=== PATIENT | male | born 1950 | race Two or more races ===

== ENCOUNTER 2024-01-24 12:02 | Emergency (ER) | payer MEDICARE, SELFPAY ==
[2024-01-24 12:03] VITALS: BMI 24.3
[2024-01-24 12:04] VITALS: BP 184/87; PULSE 82; RESP 19; TEMP 37; O2SAT 100
--- NOTE | 2024-01-24 12:15 | XR_ITS ---
Examination: PA chest single view Technique: Upright PA chest single view Exam date and time: January 24, 2024 1306 hrs. Indications: Dizziness episodes beginning 3 days ago Findings: Normal heart size Lungs are clear. The osseous structures are intact Impression: No active disease
--- NOTE | 2024-01-24 12:15 | EKG_ITS ---
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
--- NOTE | 2024-01-24 12:16 | PD.EDRME ---
Rapid Medical Screening Exam RME Arrival date/time: 01/24/24 12:02 Chief Complaint: General Adult/Misc Complain Time Seen by Provider: 01/24/24 12:12 Vital signs: Vital Signs Temperature 98.6 F 01/24/24 12:04 Pulse Rate 82 01/24/24 12:04 Respiratory Rate 19 01/24/24 12:04 Blood Pressure 184/87 H 01/24/24 12:04 Pulse Oximetry (%) 100 01/24/24 12:04 Oxygen Delivery Method Room Air 01/24/24 12:04 RME Narrative: Reports dizziness x 3 days, diarrhea x 2 days. Out of DM medications x 1 month. Patient states he is currently homeless.
[2024-01-24 12:57] LABS: Beta Hydroxybutyrate 0.1 mmol/L (<0.6)
[2024-01-24 12:59] LABS: Basophils % (Auto) 0 % (0-2.5); Eosinophils # (Auto) 0.3 Thou/mm3 (0.0-0.5); Eosinophils % (Auto) 4 % (0-10); Hematocrit 37.8 % (41.0-53.0); Hemoglobin 12.8 g/dL (13.5-16.0); Immature Granulocytes % (Auto) 0 % (0-0); Immature Granulocytes Auto 0.01 Thou/mm3 (0.00-0.00); Lymphocytes # (Auto) 2.1 Thou/mm3 (1.0-4.8); Lymphocytes % (Auto) 28 % (10-50); Mean Corpuscular HGB Conc 33.9 g/dl (31.0-37.0); Mean Corpuscular Volume 92 fL (80-100); Monocytes # (Auto) 0.8 Thou/mm3 (0.0-0.8); Monocytes % (Auto) 11 % (0-12); Neutrophils # (Auto) 4.3 Thou/mm3 (1.8-7.7); Neutrophils % (Auto) 57 % (37-80); Nucleated Red Blood Cell % 0 /100 WBC (0); Platelet Count 211 Thou/mm3 (140-440); RDW Standard Deviation 46.4 fL (35.1-43.9); Red Blood Count 4.13 Miln/mm3 (4.50-5.90); White Blood Count 7.5 Thou/mm3 (3.8-10.6)
[2024-01-24 13:13] LABS: Glucose Estimated Average 174 mg/dL (80-131); Hemoglobin A1C 7.7 % Hgb (4.8-6.0)
[2024-01-24 13:14] LABS: Alanine Aminotransferase 22 U/L (10-49); Albumin, Serum 4.3 gm/dL (3.4-4.8); Albumin/Globulin Ratio 1.3 (1.2-2.2); Alkaline Phosphatase 137 U/L (46-116); Anion Gap 7 (7-16); Aspartate Amino Transferase 20 U/L (0-34); BUN/Creatinine Ratio 13 Ratio (12-20); Bilirubin,Total 0.5 mg/dL (0.3-1.2); Blood Urea Nitrogen 12 mg/dL (9-23); Calcium 8.9 mg/dL (8.3-10.6); Calcium (Corrected) 8.9 mg/dL (8.5-10.1); Carbon Dioxide 25.4 mMol/L (20.0-31.0); Chloride 103 mMol/L (98-107); Creatinine (Component) 0.9 mg/dL (0.6-1.3); Estimated Creatinine Clearance 74.4 mL/min (>60); Globulin 3.2 gm/dL (2.3-3.5); Glucose 261 mg/dL (74-106); Lipase 44 U/L (12-53); Osmolality,Calculated 278 (275-295); Potassium 3.9 mMol/L (3.4-5.1); Sodium 135 mMol/L (136-145); Total Protein 7.5 gm/dL (5.7-8.2); Troponin I < 0.020 ng/mL (0.0-0.045); eGFR > 60 See Note
--- NOTE | 2024-01-24 13:41 | EDNOTE_ITS ---
ED General RME/HPI General Chief complaint: General Adult/Misc Complain Stated complaint: RAN OUT OF DIABETIC MEDS 30 DAYS AGO Time Seen by Provider: 01/24/24 12:12 Arrival date/time: 01/24/24 12:02 RME / HPI RME / HPI narrative: This section includes all my notes and documentations, including HPI, PE, and ED course.? Cody Lauren MD HPI: 73 year old male here requesting refills for his DM and HTN medications. Ran out over a month ago. Reports malaise and fatigue, dizziness, dry mouth, and loose stools. No other complaints. ROS: All negative except as documented in HPI. PE: Physical Exam: General:? Alert and oriented.? No acute distress.?? Eyes:? Conjunctivae and lids clear.? EOMI.? PERRL. ENT:? No nasal congestion.? Pharynx normal.? Tympanic membrane normal bilaterally.??? Neck:? Supple.? No carotid bruit.? No JVD.?? Heart:? RRR.? Lungs:? No respiratory distress.? Good air movement.? No rhonchi, wheezing, rales.?? Abdomen:? Soft and nontender.? Normal bowel sounds.? No distension.? No rebound or guarding.?? Back:? No CVA tenderness.?? Legs:? No clubbing, cyanosis, edema.? Skin:? Warm and dry.?? Neuro:? Alert and oriented X 3.? Cranial Nerves II-XII grossly intact.? No peripheral motor deficits. I reviewed all diagnostic test results. My interpretation of the chest x-ray is no acute findings. Blood tests unremarkable, except glucose 261. At this point, diagnoses include?DM and HTN. Recommended more outpatient care. Based on my best medical judgment, made decision no further evaluation or treatment indicated at this time.? Patient understands and agrees to the discharge instructions customized and printed, see below. Discharge Instructions from Dr. Lauren printed for you: 1. For your diabetes, take metformin as prescribed. 2. And metoprolol every night for high BP. You will live longer with lower BP and slower heart rate. 3. See a private doctor on 01/26/2024 for recheck and further care. Ask to help you stay healthy, with good management of your BP and diabetes, helping him to prevent future heart attacks and strokes, and with regular physical exam and health maintenance. 4. Read attached handouts. Seek immediate medical care with any concerns. Related Data Previous Rx's ?Medication ?Instructions ?Recorded metformin 1,000 mg tablet,extended 1,000 mg PO BID #60 tabs 01/24/24 release 24hr (osmotic) metoprolol succinate 100 mg 100 mg PO QDAY #30 ea 01/24/24 capsule sprinkle, ext. release 24 hr Allergies Allergy/AdvReac Type Severity Reaction Status Date / Time No Known Allergies Allergy Verified 01/24/24 12:04 Course Quality Measures none Orders Category Date Time Status EKG (ED ONLY) *Do not use* NOW Care 01/24/24 12:16 Completed CXR [XR chest 1V] Stat Exams 01/24/24 12:15 Completed EKG (ED Only) Stat Exams 01/24/24 12:15 Draft Beta Hydroxybutyrate Stat Lab 01/24/24 12:34 Completed CBC Stat Lab 01/24/24 12:34 Completed CMP [Comprehensive Metabolic Panel] Stat Lab 01/24/24 12:34 Completed Hemoglobin A1C [Glycohemoglobin w (eAG)] Stat Lab 01/24/24 12:34 Completed Lipase Stat Lab 01/24/24 12:34 Completed Troponin I Stat Lab 01/24/24 12:34 Completed Insulin Regular Med 01/24/24 13:36 Discontinued 10 unit SC X1 ONE Vital Signs Vital signs: Vital Signs Temperature 98.6 F 01/24/24 12:04 Pulse Rate 82 01/24/24 12:04 Respiratory Rate 19 01/24/24 12:04 Blood Pressure 184/87 H 01/24/24 12:04 Pulse Oximetry (%) 100 01/24/24 12:04 Oxygen Delivery Method Room Air 01/24/24 12:04 [facility] Patient data External records reviewed:: None Clinical information provided by:: patient Social determinants that could affect healthcare access:: housing Patient has the following chronic illnesses:: DM and HTN How is presenting disease/condition affected by chronic disease/condition?: e xacerbated by Evaluation data The following diagnostics were reviewed and interpreted by me:: lab results and radiology exam(s) Lab and/or radiology exams considered but not ordered:: none Interpretation Summary: DM and HTN Medications Medications considered but not ordered:: none Medication administrations:: Medication Administration History Discontinued Medications Insulin Human Regular (Insulin Hum Regular 1 Unit/0.01 Ml (Per Unit)) 10 unit SC X1 ONE Stop: 01/24/24 13:37 Last Admin: 01/24/24 13:56 Dose: 10 unit Documented By: Co-signed By: FIORELLA Insulin Consultations Consultation(s) initiated? (list below): No Diagnosis Differential Diagnosis ED Complaint MDM: DM HTN Most likely diagnosis given after review of the tests above:: DM HTN Admission Indicated Admission indicated?: not indicated Explain why admission is indicated or not indicated:: admission criteria not met Admission Request Was there a request for admission?: No Disposition Plan Disposition Plan: Discharge Discharge Attestation Discharge Attestation: The patient and all family members were given an opportunity to ask questions and understood the discharge instructions. Discharge instructions specifically effects, indications for sooner follow up or return to the emergency department, and the expected course of current diagnosis. Patient condition: Stable Medical Decision Making Differential Diagnosis Differential Diagnosis: DM HTN Lab Data 01/24/24 12:34 01/24/24 12:34 Labs: Lab Results 01/24/24 Range/Units 12:34 WBC 7.5 (3.8-10.6) Thou/mm3 RBC 4.13 L (4.50-5.90) Miln/mm3 Hgb 12.8 L (13.5-16.0) g/dL Hct 37.8 L (41.0-53.0) % MCV 92 (80-100) fL MCH 31.0 (25.0-35.0) pg MCHC 33.9 (31.0-37.0) g/dl RDW Std Deviation 46.4 H (35.1-43.9) fL Plt Count 211 (140-440) Thou/mm3 Neut % (Auto) 57 (37-80) % Lymph % (Auto) 28 (10-50) % Mcleod % (Auto) 11 (0-12) % Eos % (Auto) 4 (0-10) % Baso % (Auto) 0 (0-2.5) % Neut # (Auto) 4.3 (1.8-7.7) Thou/mm3 Lymph # (Auto) 2.1 (1.0-4.8) Thou/mm3 Mcleod # (Auto) 0.8 (0.0-0.8) Thou/mm3 Eos # (Auto) 0.3 (0.0-0.5) Thou/mm3 Baso # (Auto) 0.0 (0.0-0.2) Thou/mm3 Immature Gran # (Auto) 0.01 H (0.00-0.00) Thou/mm3 Absolute Nucleated RBC 0.00 (0.00-0.00) Thou/mm3 Immature Gran % 0 (0-0) % Nucleated RBC % 0 (0) /100 WBC Sodium 135 L (136-145) mMol/L Potassium 3.9 (3.4-5.1) mMol/L Chloride 103 (98-107) mMol/L Carbon Dioxide 25.4 (20.0-31.0) mMol/L Anion Gap 7 (7-16) BUN 12 (9-23) mg/dL Creatinine 0.9 (0.6-1.3) mg/dL Estim Creat Clear Calc 74.4 (>60) mL/min eGFR > 60 (60 - ) See Note BUN/Creatinine Ratio 13 (12-20) Ratio Glucose 261 H (74-106) mg/dL Estimated Ave Glu mg/dL 174 H (80-131) mg/dL Hemoglobin A1c 7.7 H (4.8-6.0) % Hgb Calculated Osmolality 278 (275-295) Calcium 8.9 (8.3-10.6) mg/dL Corrected Calcium 8.9 (8.5-10.1) mg/dL Total Bilirubin 0.5 (0.3-1.2) mg/dL AST 20 (0-34) U/L ALT 22 (10-49) U/L Alkaline Phosphatase 137 H (46-116) U/L Troponin I < 0.020 (0.0-0.045) ng/mL Total Protein 7.5 (5.7-8.2) gm/dL Albumin 4.3 (3.4-4.8) gm/dL Globulin 3.2 (2.3-3.5) gm/dL Albumin/Globulin Ratio 1.3 (1.2-2.2) Lipase 44 (12-53) U/L Beta-Hydroxybutyrate/Acetoacetate 0.1 (<0.6) mmol/L Discharge Plan Plan Patient Disposition: HOME (Self Care) Prescriptions/Referrals Prescriptions/Med Rec: New metformin 1,000 mg tablet extended release 24hr 1,000 mg PO BID Qty: 60 0RF metoprolol succinate 100 mg capsule,sprinkle,ER 24hr 100 mg PO QDAY Qty: 30 0RF Problem List Clinical Impression: Hyperglycemia due to diabetes mellitus, Hypertension Patient/Caregiver Discharge Instructions Discharge Activity: activity as tolerated Education Materials: ED Diabetes- Overview, ED Hypertension, Established Additional Instructions: Discharge Instructions from Dr. Lauren printed for you: 1. For your diabetes, take metformin as prescribed. 2. And metoprolol every night for high BP. You will live longer with lower BP and slower heart rate. 3. See a private doctor on 01/26/2024 for recheck and further care. Ask to help you stay healthy, with good management of your BP and diabetes, helping him to prevent future heart attacks and strokes, and with regular physical exam and health maintenance. 4. Read attached handouts. Seek immediate medical care with any concerns. Print Language: Sudanese Stand Alone Forms: Carlie Award Info., Patient Portal Info Letter
[2024-01-24] MEDS: INSULIN HUM REGULAR 1 UNIT/0.01 ML (PER UNIT) 10 UNIT SC (13:56)
== END 2024-01-24 14:02 | disposition home or self-care (01) ==
PROVIDERS: Physician Assistant; Emergency Provider Emergency Medicine
DX: E11.65 Type 2 diabetes mellitus with hyperglycemia (principal); I10 Essential (primary) hypertension
CPT/HCPCS: 36415; 71045; 80053; 82010; 83036; 83690; 84484; 85025; 93005; 96372; 99283; J1815